=== PATIENT | female | born 1975 | race Caucasian/White ===

== ENCOUNTER → 2023-01-22 | Outpatient (CLI) | payer BC ==
--- NOTE | 2023-01-22 12:09 | FL ---
EXAMINATION TYPE: FL barium swallow w video DATE OF EXAM: 01/22/2023 COMPARISON: NONE HISTORY: Dysphasia TECHNIQUE: Fluoroscopy. FINDINGS: Fluoroscopic guidance was provided for the procedure performed in conjunction with the [facility] pathology department. Please see complete report forthcoming from the Speech Pathology departmen t. Various consistencies from thin liquid to solids were administered. Fluoroscopy time 1 minute 3 seconds. Number of images: 0. No aspiration or penetration was evident. Minimal pooling is within the vallecula with solids. This cleared with thin liquids. There was normal propulsion of the bolus. IMPRESSION: 1. No aspiration or penetration. 2. Mild retention within the vallecula.
--- NOTE | 2023-01-25 16:12 | MM ---
Reason for Exam: Screening (asymptomatic). Baseline mammogram. Patient History: Menarche at age 13. First Full-Term at age 19. Patient used Hormonal Contraceptives for 3 years. Maternal grandmother had breast cancer at or over age 50. Last menstrual period: 01/12/2023 Risk Values: Fouzia 5 year model risk: 0.6%. NCI Lifetime model risk: 6.9%. Prior Study Comparison: Patient's first Mammogram. Tissue Density: There are scattered fibroglandular densities. Findings: Analyzed By CAD. Pattern appears symmetrical. No suspicious groups of microcalcifications, spiculated or lobular masses, architectural distortion or other secondary signs of malignancy are mammographically apparent. Overall Assessment: Negative, BI-RAD 1 Management: Screening Mammogram of both breasts in 1 year. A negative mammogram report should not preclude additional follow up of suspicious palpable abnormalities. Patient should continue monthly self breast exam. A clinical breast exam by your physician is recommended on an annual basis and results should be correlated with mammographic findings. Electronically signed and approved by: Dewey De Santiago D.O. Radiologis
== END | disposition home or self-care (01) ==
LOC: RADFLMAIN 11:25
PROVIDERS: ATTEND Family Medicine
DX: Z12.31 Encounter for screening mammogram for malignant neoplasm of breast (principal); R13.10 Dysphagia, unspecified; Z80.3 Family history of malignant neoplasm of breast
CPT/HCPCS: 74230; 77063; 77067